=== PATIENT | female | born 1995 | race Caucasian/White ===

== ENCOUNTER → 2018-09-23 | Outpatient (CLI) | payer OTHER ==
[~2018-09-23] MED LIST: ONDA4SOL PO; PROZ40CA PO
--- NOTE | 2018-09-23 16:13 | REP ---
THORACIC SPINE, THREE VIEWS: HISTORY: Back pain. There is no acute fracture or subluxation. The intervertebral discs are normal in height. IMPRESSION: There is no acute fracture or subluxation. Electronically Signed by Robbie Barba MD 09/23/2018 04:18 P
--- NOTE | 2018-09-23 16:17 | REP ---
LUMBAR SPINE, FIVE VIEWS: HISTORY: Back pain. There is no acute fracture or subluxation. The intervertebral discs are normal in height. The facet joints are normal in appearance. IMPRESSION: There is no acute fracture or subluxation. Electronically Signed by Robbie Barba MD 09/23/2018 04:18 P
== END ==
LOC: M WUC 10:57
PROVIDERS: ATTEND Family Medicine
DX: M54.9 Dorsalgia, unspecified (principal)

== ENCOUNTER → 2018-10-16 | Outpatient (REF) | payer OTHER | LOC: M LAB REF 13:26 | PROVIDERS: ATTEND Specialist | DX: Z12.4 Encounter for screening for malignant neoplasm of cervix (principal) ==

== ENCOUNTER → 2020-05-29 | Outpatient (REF) | payer MEDICAID, OTHER | LOC: M LAB REF 09:00 | PROVIDERS: ATTEND Specialist | DX: Z00.00 Encounter for general adult medical examination without abnormal findings (principal) ==

== ENCOUNTER → 2020-07-27 | Outpatient (REF) | payer OTHER ==
[2020-07-27 14:02] LABS: HEMATOCRIT 40.9 % (36.0-47.0); HEMOGLOBIN 13.5 g/dl (12.0-15.5); MEAN CORPUSCULAR HEMOGLOBIN 29.3 pg (27.0-33.0); MEAN CORPUSCULAR VOLUME 88.7 fl (80.0-96.0); PLATELET COUNT, AUTOMATED 284 10^3/uL (150-450); RED BLOOD COUNT 4.61 10^6/uL (4.00-5.40); WHITE BLOOD COUNT 6.4 10^3/uL (4.0-10.0)
[2020-07-27 15:19] LABS: HEPATITIS C VIRUS ABY INDEX 0.1 INDEX (<0.8); HIV 1&2 SCREEN CENTAUR NEGATIVE (NEGATIVE)
== END ==
LOC: M PLALAB 09:41
PROVIDERS: ATTEND Specialist
DX: Z34.81 Encounter for supervision of other normal pregnancy, first trimester (principal)

== ENCOUNTER → 2020-08-25 | Outpatient (CLI) | payer OTHER | LOC: M PLALAB 09:21 | PROVIDERS: ATTEND Advanced Practice Midwife | DX: Z34.82 Encounter for supervision of other normal pregnancy, second trimester (principal); Z36.89 Encounter for other specified antenatal screening ==

== ENCOUNTER → 2020-10-02 | Outpatient (CLI) | payer OTHER ==
--- NOTE | 2020-10-02 10:51 | REP ---
INDICATION: ANATOMY COMPARISON: None. TECHNIQUE: Transabdominal obstetrical ultrasound with color Doppler evaluation. FINDINGS: Examination demonstrates a single live intrauterine in cephalic presentation. motion is identified by technologist. Placenta is noted anterior and grade 1 without evidence for placenta previa or abruption. Amniotic fluid volume is normal. Cervix measures 3.4 cm in length and appears closed. Placental tip 2.8 cm from the closed internal os.. Gestational age by LMP 18 weeks 4 days with MARY ELLEN 03/01/2021. Gestational age by current measurements 18 weeks 4 days with MARY ELLEN 03/01/2021. FHR equals 143 beats per minute. BPD: 4.3 cm 18 weeks 6 days HC: 15.5 cm 18 weeks 3 days AC: 13.1 cm 18 weeks 4 days FL: 2.7 cm 18 weeks 1 day HL: 2.8 cm 19 weeks 0 days HC/AC: 1.19 Estimated weight 238 grams (34thpercentile). Anatomical assessment demonstrates normal structures including cranium, choroid plexus, cavum, cerebellum/posterior fossa, facial features, lungs, four-chamber heart/ventricular outflow tracts, diaphragm, stomach, cord insertion/three-vessel cord, kidneys/bladder, spine, and extremities. IMPRESSION: Single live intrauterine in cephalic presentation demonstrating appropriate interval growth. Anatomical assessment is complete and normal. No gross abnormalities are identified. <Electronically signed by Medardo Ashraf > 10/02/20 [id number]
== END ==
LOC: M WHC 09:38
PROVIDERS: ATTEND Advanced Practice Midwife
DX: Z34.82 Encounter for supervision of other normal pregnancy, second trimester (principal); Z3A.17 17 weeks gestation of pregnancy

== ENCOUNTER → 2021-01-09 | Outpatient (REF) | payer OTHER ==
[2021-01-09 15:50] LABS: HEMATOCRIT 31.5 % (36.0-47.0); HEMOGLOBIN 9.9 g/dl (12.0-15.5); MEAN CORPUSCULAR HEMOGLOBIN 27.5 pg (27.0-33.0); MEAN CORPUSCULAR HGB CONC 31.4 g/dl (32.0-36.5); MEAN CORPUSCULAR VOLUME 87.5 fl (80.0-96.0); PLATELET COUNT, AUTOMATED 370 10^3/uL (150-450)
== END ==
LOC: M PLALAB 11:10
PROVIDERS: ATTEND Specialist
DX: Z36.89 Encounter for other specified antenatal screening (principal); Z34.82 Encounter for supervision of other normal pregnancy, second trimester

== ENCOUNTER → 2021-01-16 | Outpatient (CLI) | payer OTHER ==
--- NOTE | 2021-01-17 06:27 | REP ---
INDICATION: GROWTH COMPARISON: 10/02/2020 TECHNIQUE: Transabdominal obstetrical ultrasound with color Doppler evaluation. FINDINGS: Examination demonstrates a single live intrauterine in breech presentation. motion is identified by technologist. Placenta is noted anterior and grade 3 without evidence for placenta previa or abruption. Amniotic fluid volume is normal. Cervix measures 3.9 cm in length and appears closed.. Gestational age by LMP and 1st U/S 33 weeks 5 days with MARY ELLEN 03/01/2021. Gestational age by current measurements 32 weeks 5 days with MARY ELLEN is 03/08/2021. FHR equals 158 beats per minute. BPD: 7.7 cm at 30 weeks 5 days HC: 30.3 cm at 33 weeks 5 days AC: 31.2 cm at 35 weeks 1 day FL: 6.2 cm at 32 weeks 1 day HL: 5.5 cm at 31 weeks 6 days HC/AC: 0.97 Estimated weight 2268 grams (44thpercentile). SARA: 13.8 cm IMPRESSION: Single live intrauterine in breech presentation demonstrating appropriate estimated weight and growth. <Electronically signed by Medardo Ashraf > 01/17/21 [id number]
== END ==
LOC: M WHC 09:59
PROVIDERS: ATTEND Advanced Practice Midwife
DX: Z36.89 Encounter for other specified antenatal screening (principal)

== ENCOUNTER → 2021-02-06 | Outpatient (REF) | payer OTHER | LOC: M SFHCWAGY 12:45 | PROVIDERS: ATTEND Specialist | DX: Z34.83 Encounter for supervision of other normal pregnancy, third trimester (principal) ==

== ENCOUNTER 2021-02-22 14:43 | Outpatient (CLI) | payer OTHER ==
[~2021-02-22] VITALS: Ht 182.9 cm; Wt 96.0 kg
[2021-02-22] MEDS ORDERED: PRENTAB9 PO (15:08)
[2021-02-22] MEDS ORDERED: DULOXETINE PO (15:08)
[2021-02-22] MEDS ORDERED: OMEP40CA97 PO (15:08)
[2021-02-22 15:13] VITALS: BP 121/68
--- NOTE | 2021-02-22 16:05 | IPNPDOC ---
Text Note Date of Service The patient was seen on 02/22/21. NOTE Triage Note Isa is a 26yo with SIUP at 39w0d presenting for leakage of fluid. She states no recent intercourse. The discharge is clear but much more watery than her usual discharge. Not currently leaking any further. Good movement. No vaginal bleeding. No regular ctx (though she had a run of ctx earlier in the morning). Vitals wnl, afebrile Gen: WDWN, comfortable sitting in bed Abdomen: soft, gravid, NTTP SSE: NEFG, NO pooling, NEGATIVE valsalva. Nitrite negative. Ferning negative. SCE: /-1 TAUS: SIUP with cephalic presentation, anterior placenta, +FCA, +FM, MVP 3.7cm and pockets of fluid visualized in all quadrants NST: reactive with +accels, -decels, mod hu [place]: occasional ctx Assessment: Isa is a 26yo with SIUP at 39w0d with NO evidence of ROM or active labor. Negative pool/valsalva/nitrazine/fern. MVP 3.7cm. Reactive NST with occasional ctx. SCE /-1. Plan: -safe for discharge home, provided reassurance -keep next routine OB appt on 02/28 -good hydration -return precautions discussed MD MAAME Batista Fishbone, I+O Ellie ISABEL I+O Vital Signs Date Time Temp Pulse Resp B/P (MAP) Pulse Ox O2 Delivery O2 Flow Rate FiO2 02/22/21 15:13 98.2 80 18 121/68 (85) Alyson Maldonado MD February 22, 2021 16:05
== END 2021-02-22 15:48 | disposition home or self-care (01) ==
LOC: M LDO 14:43
PROVIDERS: ATTEND Obstetrics & Gynecology
DX: O47.1 False labor at or after 37 completed weeks of gestation (principal); Z3A.39 39 weeks gestation of pregnancy; Z88.8 Allergy status to other drugs, medicaments and biological substances

== ENCOUNTER 2021-02-22 21:03 | Inpatient (IN) | payer OTHER ==
[~2021-02-22] VITALS: Ht 182.9 cm; Wt 95.9 kg
[~2021-02-22 21:03] MED LIST changes: +DULOXETINE PO; +OMEP40CA97 PO; +PRENTAB9 PO
[2021-02-22 21:18] VITALS: BP 126/72
[2021-02-22] MEDS ORDERED: LACTATED RINGER'S 1000 ML IV STA (22:01)
[2021-02-22] MEDS ORDERED: OXYTOCIN DRIP 30 UNITS in IV 1 EA IV PRN (22:05)
[2021-02-22 22:30] LABS: HEMATOCRIT 31.1 % (36.0-47.0); HEMOGLOBIN 9.9 g/dl (12.0-15.5); MEAN CORPUSCULAR HEMOGLOBIN 25.8 pg (27.0-33.0); MEAN CORPUSCULAR HGB CONC 31.8 g/dl (32.0-36.5); PLATELET COUNT, AUTOMATED 365 10^3/uL (150-450); RED BLOOD COUNT 3.84 10^6/uL (4.00-5.40); WHITE BLOOD COUNT 11.2 10^3/uL (4.0-10.0)
[2021-02-22 22:58] VITALS: BP 134/62
[2021-02-22] MEDS ORDERED: FENTANYL 2MCG/ML ROPIVACAINE 0.2% IN 0.9% NACL 100ML IVBAG As Ordered ONE (23:10)
--- NOTE | 2021-02-22 23:11 | HPEPDOC ---
Obstetrical History & Physical General Date of Admission February 22, 2021 at 22:51 History of Present Illness Isa is a 26yo with SIUP at 39w0d by 9wk u/s presenting for regular, painful ctx. She was seen earlier today in the afternoon for possible SROM but had negative workup (negative pooling/valsalva/nitrazine/ferning and adequate SARA). At that time SCE was 4/75/-2 and she had very occasional ctx that were not painful. She called me a few hours later after going home to say that her contractions were picking up and becoming uncomfortable- I recommended waiting until she had a solid hour of painful regular ctx 3-5min apart, and she called back about 1.5hr later and stated ctx were extremely strong. I advised her to come in. She has had good movement. No further LOF from what she originally presented with earlier in the day. No vaginal bleeding. Chief Complaint: Contractions, term Information Provided By: Patient Care Care: Good Care Dating Final EDC: March 01, 2021 Final EDC by: 1st trimester (US) Antepartum Course Diagnos(e)s Anxiety (cymbalta 60mg qd), GERD (omeprazole) Past Medical History Past Obstetrical History : Past Obstetrical History: Multigravida (03/26/2015 39wk 7lb9oz F) [employer] History: History of STD (chlamydia and molluscum contagiosum) Past Medical History Medical History seasonal allergies, tension headaches Surgical History: Diagnostic laparoscopy (cyst removed from fallopian tube (R), incidental appendectomy 2010) Family History Significant Family History: Other (MGM breast cancer, PGM ovarian cancer) Social History Marital Status: Other (life partner) Family situation: Spouse/partner home Psychosocial History: Anxiety * Smoker: non-smoker Alcohol: Denies Drugs: denies Allergies Coded Allergies: metoclopramide (Verified Allergy, Unknown, 02/22/21) Medications Scheduled Omeprazole (Omeprazole) 40 Mg Capsule.dr, 40 MG PO DAILY No.137/Iron/Folic Acd ( Vitamin Tablet) 1 Each Tablet, 1 TAB PO DAILY [Duloxetime] , 60 MG PO DAILY Physical Examination Physical Examination GENERAL: Alert and oriented times three. ABDOMEN: Gravid and non-tender to touch. FETUS: Is vertex (VTX) by sterile vaginal examination (SVE) EXTREMITIES: No edema BLE Vital Signs/I&O Vital Signs Date Time Temp Pulse Resp B/P (MAP) Pulse Ox O2 Delivery O2 Flow Rate FiO2 02/22/21 21:18 98.4 100 18 126/72 (90) Laboratory Data 24H [facility]S Laboratory Tests 2 02/22/21 22:21: Nucleated Red Blood Cells % (auto) 0.0 CBC/BMP Laboratory Tests 02/22/21 22:21 Pertinent Laboratoy Data Blood Type: O+ RBC Antibody Screen: Negative HIV: Negative Hepatitis B: Negative Hepatitis C: Negative Rapid Plasma Reagin: Nonreactive Rubella: Immune Chlamydia/Gonorrhea: Negative Group B Streptococcus: Negative Glucose Tolerance Test: 114 Anatomy Ultrasound Ultrasound Date: Oct 02, 2020 Placenta Location: Anterior Normal Anatomy: Yes Placenta Previa: No Steroid Therapy Steroid Therapy: No Vaginal Examination Dilation: 5 cm Effacement: 90% Station: -1, 0 Cervical Consistency: Soft Cervical Position: Middle Presentation: Cephalic presentation Assessment Heart Rate (FHR): 130 Variability: Moderate Accelerations: Positive Decelerations: None Tocometer Contractions: Yes Frequency: regular, every 2-5 min. Duration: greater than 60 seconds Strength: palpated as strong Assessment/Plan Assessment Isa is a 26yo with SIUP at 39w0d by 9wk u/s presenting in active labor with SCE change from 4/75/-1 to 5/90/-1 in the setting of painful, regular ctx. Vitals wnl, reassuring status. Cephalic by SCE. GBS negative. Plan Admit and orient. Outpatient Dietitian and consent. Diet: clear liquids Group B Streptococcus (GBS) negative Labs and intravenous (IV) per unit protocol. Lactated Ringers (LR): Bolus 800 mL, then at 125 mL/hr. Anticipate normal spontaneous delivery () Candidate for epidural as desired Alyson Maldonado MD February 22, 2021 23:10
[2021-02-22] MEDS ORDERED: OXYTOCIN 30 UNITS IN 0.9% NaCl 500ML IV BAG (J2590) As Ordered ONE (23:13)
[2021-02-22] MEDS ORDERED: MEASLES,MUMPS,RUBELLA VACCINE INJ (MMR-II) (90707) SC SCH (23:30)
[2021-02-22] MEDS ORDERED: IBUPROFEN 600MG TAB PO PRN (23:30)
[2021-02-22] MEDS ORDERED: DOCUSATE SODIUM 100MG CAPSULE PO PRN (23:30)
[2021-02-22] MEDS ORDERED: RHOGAM 300 MCG (1500 IU) INJ (J2790) IM SCH (23:30)
[2021-02-22] MEDS ORDERED: ACETAMINOPHEN TAB 650MG DOSE (2X325MG) PO PRN (23:30)
[2021-02-22] MEDS ORDERED: DIBUCAINE 1% OINTMENT 30GM TOP PRN (23:30)
--- NOTE | 2021-02-22 23:33 | DNPDOC ---
[facility] Delivery Note Delivery Note DATE OF DELIVERY: 02/22/2021 PREDELIVERY DIAGNOSIS: 39w0d SIUP in active labor POST DELIVERY DIAGNOSIS: Delivered. PROCEDURE: Spontaneous vaginal delivery FRONT COUNTER CLERK: Dr. Alyson Maldonado MD ANESTHESIA: none ESTIMATED BLOOD LOSS: 200 mL. FINDINGS: 6 pound 12 ounce (3060g) female infant, Score 8/9 DELIVERY SUMMARY: Isa is a 26yo [id number] s/p uncomplicated at 39w0d after presenting in active labor, delivering at 2312 on 02/22/21. She presented at 4/75/-1 and very rapidly progressed to C/C/0, at which point she began pushing. With excellent maternal effort, 's head delivered OA, restituted JOSÉ. Left anterior shoulder delivered followed by posterior shoulder and corpus. Moderate meconium only noted at that point (SROM occurred 1 minute before delivery, but was initially thought to be clear). Infant was vigorous with lusty cry, apgars 8/9, placed on maternal abdomen. After approximately 2 minutes, cord was clamped x2 and cut by FOB. Cord blood obtained for MBT O pos. With firm traction on the cord and uterine massage, placenta delivered spontaneously and intact with centrally inserted 3 vessel cord. Bimanual massage was performed with firming of the uterus. IV pitocin bolused per protocol. Inspection of vagina and perineum revealed bilateral labial abrasions that were hemostatic with no need for repair. Fundus again massaged and noted U-2cm. All counts correct x2. Mom and baby were doing well when I left the room. MD Erica Batista Katrina D MD February 22, 2021 23:33
[2021-02-22 23:50] VITALS: BP 133/63
[2021-02-23 00:05] VITALS: BP 136/69
[2021-02-23 01:04] VITALS: BP 125/64
[2021-02-23] MEDS: IBUPROFEN 800 MG TAB PO PRN ×2 (01:20→16:25)
[2021-02-23 01:45] VITALS: BP 131/79
[2021-02-23] MEDS: LR 1,000 ML IV SCH ×2 (02:22→06:05)
[2021-02-23 05:35] VITALS: BP 114/54
--- NOTE | 2021-02-23 08:54 | IPNPDOC ---
Text Note Date of Service The patient was seen on 02/23/21. NOTE PP#1 Feels well. Adequate pain management. . Voiding VSS, afebrile, normotensive Breasts soft, nipples intact Fundus firm, NT, down 1 FB Lochia rubra scant without odor PP #1 Routine care. Anticipate D/C in am VS,Fishbone, I+O VS, Fishbone, I+O Laboratory Tests 02/22/21 22:21 Vital Signs Date Time Temp Pulse Resp B/P (MAP) Pulse Ox O2 Delivery O2 Flow Rate FiO2 02/23/21 05:35 98.0 68 16 114/54 (74) 100 Room Air I&O- Last 24 Hours up to 6 AM 02/23/21 06:00 Intake Total 1740 ml Output Total 400 ml Balance 1340 ml Elizabeth Joseph CNM February 23, 2021 08:54
[2021-02-23] MEDS: PRENATAL VITAMINS CHEWABLE TABLET PO SCH (09:45)
[2021-02-23] MEDS: DULoxetine 30 MG CAP (CYMBALTA) PO SCH (09:45)
[2021-02-23] MEDS: ACETAMINOPHEN 500 MG TAB PO PRN (09:45)
[2021-02-23 18:00] VITALS: BP 123/70
[2021-02-24] MEDS: IBUPROFEN 800 MG TAB PO PRN (00:49)
[2021-02-24 06:10] VITALS: BP 108/53
[2021-02-24] MEDS: DULoxetine 30 MG CAP (CYMBALTA) PO SCH (08:35)
[2021-02-24] MEDS: PRENATAL VITAMINS CHEWABLE TABLET PO SCH (08:36)
[2021-02-24] MEDS: ACETAMINOPHEN 500 MG TAB PO PRN (08:36)
== END 2021-02-24 12:40 | disposition home or self-care (01) | DRG 560 ==
LOC: M LDO 21:03 → M LDI 22:51 → M OBS 02-23 01:39
PROVIDERS: ADMIT Obstetrics & Gynecology; ATTEND Obstetrics & Gynecology
PROC: 10E0XZZ Delivery of Products of Conception, External Approach (ICD-10-PCS; principal; 2021-02-22)
DX: O99.344 Other mental disorders complicating childbirth (principal); F41.9 Anxiety disorder, unspecified; Z37.0 Single live birth; O62.3 Precipitate labor; Z3A.39 39 weeks gestation of pregnancy

== ENCOUNTER 2021-11-08 20:36 | Emergency (ER) | payer OTHER ==
[~2021-11-08] VITALS: Ht 182.9 cm; Wt 88.2 kg
[~2021-11-08 20:36] MED LIST changes: +OMEP40CA4 PO; -OMEP40CA97 PO
[2021-11-08 20:42] VITALS: BP 113/75
[2021-11-08] MEDS ORDERED: FLUO20CA22 (20:48)
[2021-11-08] MEDS ORDERED: ESTA0.25 (20:48)
[2021-11-08] MEDS ORDERED: AMPH1CAP5 (20:48)
[2021-11-09] MEDS ORDERED: PROM12.56 PO (10:00)
== END 2021-11-08 21:11 | disposition left against medical advice (07) ==
LOC: M ED 20:36
DX: Z53.21 Procedure and treatment not carried out due to patient leaving prior to being seen by health care provider (principal)

== ENCOUNTER 2021-11-09 04:01 | Emergency (ER) | payer OTHER ==
[~2021-11-09] VITALS: Ht 177.8 cm; Wt 88.2 kg
[~2021-11-09 04:01] MED LIST changes: +AMPH1CAP5; +ESTA0.25; +FLUO20CA22
[2021-11-09] MEDS ORDERED: NS 1,000 ML IV ONE (06:10)
[2021-11-09] MEDS ORDERED: ONDANSETRON 4MG/2ML VIAL IV ONE (06:10)
[2021-11-09 07:01] VITALS: BP 116/62
[2021-11-09] MEDS ORDERED: PROMETHAZINE INJ 25 MG/ML VIAL (J2550) IV ONE (07:10)
[2021-11-09 07:11] LABS: BASO % 0.2 % (0.0-1.0); HEMATOCRIT 39.7 % (36.0-47.0); LYMPH # 1.1 10^3/uL (1.5-5.0); LYMPH % 9.8 % (24.0-44.0); MEAN CORPUSCULAR HGB CONC 32.7 g/dl (32.0-36.5); MEAN CORPUSCULAR VOLUME 82.4 fl (80.0-96.0); MONO # 0.3 10^3/uL (0.0-0.8); MONO % 2.7 % (2.0-8.0); NEUTROPHILS # 9.4 10^3/uL (1.5-8.5); NEUTROPHILS % 86.8 % (36.0-66.0); PLATELET COUNT, AUTOMATED 256 10^3/uL (150-450); RED BLOOD COUNT 4.82 10^6/uL (4.00-5.40); WHITE BLOOD COUNT 10.8 10^3/uL (4.0-10.0)
[2021-11-09 07:36] LABS: ALBUMIN 3.7 GM/DL (3.2-5.2); ALT/SGPT 20 U/L (12-78); BILIRUBIN,DIRECT 0.1 MG/DL (0.0-0.2); BILIRUBIN,TOTAL 0.3 MG/DL (0.2-1.0); BLOOD UREA NITROGEN 14 MG/DL (7-18); CALCIUM LEVEL 9.1 MG/DL (8.5-10.1); CARBON DIOXIDE LEVEL 23 MEQ/L (21-32); CHLORIDE LEVEL 108 MEQ/L (98-107); CREATININE FOR GFR 0.97 MG/DL (0.55-1.30); GLOMERULAR FILTRATION RATE > 60.0 (>60); GLUCOSE, FASTING 155 MG/DL (70-100); LIPASE 107 U/L (73-393); POTASSIUM SERUM 3.9 MEQ/L (3.5-5.1); SODIUM LEVEL 139 MEQ/L (136-145); TOTAL PROTEIN 7.8 GM/DL (6.4-8.2)
[2021-11-09 07:37] LABS: HCG, SERUM QUALITATIVE NEGATIVE (NEGATIVE)
[2021-11-09] MEDS ORDERED: NS 760 ML IV ONE (08:10)
[2021-11-09] MEDS ORDERED: PROM12.56 PO (10:00)
== END 2021-11-09 10:45 | disposition home or self-care (01) ==
LOC: M ED 04:01
DX: U07.1 COVID-19 (principal); E86.0 Dehydration; R11.2 Nausea with vomiting, unspecified; K21.9 Gastro-esophageal reflux disease without esophagitis; F32.9 Major depressive disorder, single episode, unspecified; F90.9 Attention-deficit hyperactivity disorder, unspecified type; Z79.899 Other long term (current) drug therapy; Z79.3 Long term (current) use of hormonal contraceptives
CPT/HCPCS: 80048; 80076; 83690; 84703; 85025; 93005; 93041; 96361; 96374; 96375; 99284; J2405; U0003

== ENCOUNTER → 2024-07-19 | Outpatient (REF) | payer OTHER ==
[~2024-07-19] MED LIST changes: +FLUO-365; -FLUO20CA22; +PROM12.56 PO
[2024-07-19 15:43] LABS: GC DNA AMPLIFICATION NEGATIVE (NEGATIVE)
== END ==
LOC: M SFHCWAGY 12:19
PROVIDERS: ATTEND Specialist
DX: Z34.81 Encounter for supervision of other normal pregnancy, first trimester (principal)

== ENCOUNTER → 2024-08-18 | Outpatient (CLI) | payer OTHER ==
[2024-08-18 14:14] LABS: HEMOGLOBIN 12.5 g/dl (12.0-15.5); MEAN CORPUSCULAR HEMOGLOBIN 30.8 pg (27.0-33.0); MEAN CORPUSCULAR HGB CONC 33.8 g/dl (32.0-36.5); MEAN CORPUSCULAR VOLUME 91.1 fl (80.0-96.0); PLATELET COUNT, AUTOMATED 294 10^3/uL (150-450); RED BLOOD COUNT 4.06 10^6/uL (4.00-5.40)
[2024-08-18 14:58] LABS: HIV 1&2 SCREEN NEGATIVE (NEGATIVE)
[2024-08-18 15:06] LABS: HEPATITIS C VIRUS ABY INDEX 0.02 INDEX (<0.8)
== END ==
LOC: M PLALAB 11:13
PROVIDERS: ATTEND Specialist
DX: Z34.81 Encounter for supervision of other normal pregnancy, first trimester (principal)

== ENCOUNTER → 2024-08-18 | Outpatient (REF) | payer OTHER | LOC: M PLALAB 11:06 | PROVIDERS: ATTEND Obstetrics & Gynecology | DX: Z36.89 Encounter for other specified antenatal screening (principal); Z3A.13 13 weeks gestation of pregnancy ==

== ENCOUNTER → 2024-10-14 | Outpatient (CLI) | payer OTHER | LOC: M WHC 15:08 | PROVIDERS: ATTEND Obstetrics & Gynecology | DX: Z34.82 Encounter for supervision of other normal pregnancy, second trimester (principal) ==

== ENCOUNTER → 2024-11-18 | Outpatient (CLI) | payer OTHER | LOC: M WHC 13:06 | PROVIDERS: ATTEND Obstetrics & Gynecology | DX: Z34.80 Encounter for supervision of other normal pregnancy, unspecified trimester (principal) ==

== ENCOUNTER → 2024-12-08 | Outpatient (CLI) | payer OTHER ==
[2024-12-08 15:08] LABS: HEMATOCRIT 33.3 % (36.0-47.0); HEMOGLOBIN 10.8 g/dl (12.0-15.5); MEAN CORPUSCULAR HEMOGLOBIN 30.1 pg (27.0-33.0); MEAN CORPUSCULAR HGB CONC 32.4 g/dl (32.0-36.5); MEAN CORPUSCULAR VOLUME 92.8 fl (80.0-96.0); PLATELET COUNT, AUTOMATED 342 10^3/uL (150-450); RED BLOOD COUNT 3.59 10^6/uL (4.00-5.40); WHITE BLOOD COUNT 9.6 10^3/uL (4.0-10.0)
[2024-12-08 15:32] LABS: GLUCOSE CHALLENGE TEST 1 HOUR 74 MG/DL (LESS THAN 140)
[2024-12-08 16:07] LABS: HIV 1&2 SCREEN NEGATIVE (NEGATIVE)
[2024-12-08 18:16] LABS: HEPATITIS C VIRUS ABY INDEX 0.03 INDEX (<0.8)
== END ==
LOC: M PLALAB 12:08
PROVIDERS: ATTEND Obstetrics & Gynecology
DX: Z34.80 Encounter for supervision of other normal pregnancy, unspecified trimester (principal)

== ENCOUNTER → 2024-12-14 | Outpatient (REF) | payer OTHER ==
[2024-12-14 21:19] LABS: GC DNA AMPLIFICATION NEGATIVE (NEGATIVE)
== END ==
LOC: M PLALAB 16:00
PROVIDERS: ATTEND Nurse Practitioner Family
DX: Z34.83 Encounter for supervision of other normal pregnancy, third trimester (principal)

== ENCOUNTER → 2025-01-18 | Outpatient (REF) | payer OTHER | LOC: M PLALAB 14:32 | PROVIDERS: ATTEND Nurse Practitioner Family | DX: Z36.89 Encounter for other specified antenatal screening (principal); Z3A.35 35 weeks gestation of pregnancy ==

== ENCOUNTER → 2025-01-25 | Outpatient (CLI) | payer OTHER | LOC: M WHC 12:33 | PROVIDERS: ATTEND Nurse Practitioner Family | DX: O28.8 Other abnormal findings on antenatal screening of mother (principal) ==

== ENCOUNTER 2025-02-15 05:01 | Inpatient (IN) | payer OTHER ==
[~2025-02-15] VITALS: Ht 182.9 cm; Wt 107.4 kg
[2025-02-15] VITALS (10 sets, daily range): BP systolic 107–127; BP diastolic 52–68; TEMP 97.8; O2SAT 96–99
[~2025-02-15 05:01] MED LIST changes: +IRON65TA2 PO; +MAGN400C2 PO; +MULTTAB20 PO
[2025-02-15] MEDS: LACTATED RINGER'S 1000 ML IV STA (05:12)
[2025-02-15] MEDS ORDERED: LR 1,000 ML IV SCH (05:15)
[2025-02-15 05:54] LABS: HEMATOCRIT 35.4 % (36.0-47.0); HEMOGLOBIN 11.9 g/dl (12.0-15.5); MEAN CORPUSCULAR HEMOGLOBIN 29.5 pg (27.0-33.0); MEAN CORPUSCULAR HGB CONC 33.6 g/dl (32.0-36.5); MEAN CORPUSCULAR VOLUME 87.6 fl (80.0-96.0); PLATELET COUNT, AUTOMATED 296 10^3/uL (150-450); RED BLOOD COUNT 4.04 10^6/uL (4.00-5.40); WHITE BLOOD COUNT 8.2 10^3/uL (4.0-10.0)
[2025-02-15 06:51] LABS: HIV 1&2 SCREEN NEGATIVE (NEGATIVE)
[2025-02-15 06:59] LABS: HEPATITIS C VIRUS ABY INDEX 0.03 INDEX (<0.8)
[2025-02-15] MEDS: AZITHROMYCIN INJ 500 MG, VIAL MATE ADAPTER 1 EACH in NS 250 ML IV ONE (07:39)
[2025-02-15] MEDS: BICITRA 30ML SOLN UDC PO ONE (07:39)
[2025-02-15] MEDS: ceFAZolin SODIUM 2 GM in DEXTROSE 5% (D5W) ADV/MINI-BAG 50 ML IV ONE (07:39)
[2025-02-15] MEDS ORDERED: ONDANSETRON 4MG 2ML VIAL As Ordered ONE (08:07)
[2025-02-15] MEDS ORDERED: OXYTOCIN 30UNITS IN 0.9% NaCl 500ML IV BAG As Ordered ONE (08:07)
[2025-02-15] MEDS ORDERED: MORPHINE PRES-FREE INJ 10 MG/10 ML VIAL As Ordered ONE (08:07)
[2025-02-15] MEDS ORDERED: ACETAMINOPHEN 1000MG/100ML IV BAG As Ordered ONE (08:07)
[2025-02-15] MEDS ORDERED: KETOROLAC 30 MG/ML 1ML VIAL As Ordered ONE (08:07)
[2025-02-15] MEDS ORDERED: PHENYLephrine 500MCG 5ML (100MCG/ML) SYRINGE As Ordered ONE (08:17)
[2025-02-15] MEDS ORDERED: ePHEDrine SULFATE 25 MG/5 ML(5MG/ML) SYRINGE As Ordered ONE (08:18)
[2025-02-15 08:50] LABS: CORD GAS ABE V -1.5; CORD GAS HCO3 V 23.1 MMOL/L; CORD GAS O2 SAT V 80.1 %; CORD GAS PCO2 V 38.7 mmHg; CORD GAS PH V 7.394 UNITS; CORD GAS PO2 V 36.5 mmHg; CORD GAS SBC V 22.8 MMOL/L; CORD GAS TCO2 V 24.3 MMOL/L
[2025-02-15] MEDS ORDERED: ANUSOL HC CREAM 30GM TOP PRN (09:15)
[2025-02-15] MEDS ORDERED: oxyCODONE 5MG TAB PO PRN ×2 (09:15→09:50)
[2025-02-15] MEDS ORDERED: SIMETHICONE 80MG CHEW TAB PO PRN (09:15)
[2025-02-15] MEDS ORDERED: fentaNYL 100 MCG/2 ML INJECTION IV PRN (09:50)
[2025-02-15] MEDS ORDERED: diphenhydrAMINE 50MG/ML VIAL IV PRN (09:50)
[2025-02-15] MEDS ORDERED: NALOXONE INJ 0.4MG/1ML VIAL IV PRN ×2 (09:50)
[2025-02-15] MEDS ORDERED: MEPERIDINE 25 MG/ML 1ML VIAL IV PRN (09:50)
[2025-02-15] MEDS ORDERED: HYDROMORPHONE HCL 0.5 MG/ 0.5 ML SYRINGE IV PRN (09:50)
[2025-02-15] MEDS ORDERED: **NOTE PATIENT COMMENT** MISC XX SCH (09:50)
[2025-02-15] MEDS: SLF 3 ML SYR IV SCH (09:50)
[2025-02-15] MEDS ORDERED: ONDANSETRON 4MG 2ML VIAL IV PRN (09:50)
[2025-02-15] MEDS: OXYTOCIN DRIP 30 UNITS in IV 1 EA IV ONE (10:03)
[2025-02-15] MEDS: ACETAMINOPHEN 500 MG TAB PO PRN (14:49)
[2025-02-15] MEDS ORDERED: HOME MED LIST COMPLETE! XX SCH (16:20)
[2025-02-15] MEDS: FERROUS SULFATE 325MG TAB PO SCH (17:00)
[2025-02-15] MEDS: IBUPROFEN 800 MG TAB PO SCH (19:00)
[2025-02-15] MEDS: DOCUSATE SODIUM 100MG CAPSULE PO SCH (22:10)
[2025-02-16] VITALS (7 sets, daily range): BP systolic 101–132; BP diastolic 54–88; O2SAT 95–98
[2025-02-16 06:33] LABS: HEMATOCRIT 28.9 % (36.0-47.0); MEAN CORPUSCULAR HEMOGLOBIN 29.7 pg (27.0-33.0); MEAN CORPUSCULAR HGB CONC 33.6 g/dl (32.0-36.5); MEAN CORPUSCULAR VOLUME 88.4 fl (80.0-96.0); PLATELET COUNT, AUTOMATED 247 10^3/uL (150-450); RED BLOOD COUNT 3.27 10^6/uL (4.00-5.40); WHITE BLOOD COUNT 9.5 10^3/uL (4.0-10.0)
[2025-02-16 06:40] LABS: HEMOGLOBIN 9.7 g/dl (12.0-15.5)
[2025-02-16] MEDS: PRENATAL VITAMINS CHEWABLE TABLET PO SCH (09:31)
[2025-02-16] MEDS: oxyCODONE 5MG TAB PO PRN (15:43)
[2025-02-17 02:00] VITALS: BP 105/56; O2SAT 99
[2025-02-17 06:00] VITALS: BP 112/68; O2SAT 99
[2025-02-17] MEDS ORDERED: MEASLES,MUMPS,RUBELLA VACCINE INJ (MMR-II) SC.IMMUN ONE (09:00)
[2025-02-17] MEDS ORDERED: OXYC1TAB23 PO (10:08)
[2025-02-17] MEDS ORDERED: IBUP80TA PO (10:08)
[2025-02-17] MEDS: BOOSTRIX VACCINE (TETANUS/DIPHTH/ACEL. PERTUSSIS) 0.5ML SYR IM.IMMUN ONE (11:12)
[2025-02-18] MEDS ORDERED: FERR325T19 (18:02)
[2025-02-18] MEDS ORDERED: MAG-400T7 (18:02)
== END 2025-02-17 11:59 | disposition home or self-care (01) | DRG 785 ==
LOC: M LDI 05:01 → M OBS 10:33
PROVIDERS: ADMIT Obstetrics & Gynecology; ATTEND Obstetrics & Gynecology
PROC: 0UT70ZZ Resection of Bilateral Fallopian Tubes, Open Approach (ICD-10-PCS; 2025-02-15)
PROC: 10D00Z1 Extraction of Products of Conception, Low, Open Approach (ICD-10-PCS; principal; 2025-02-15 07:30)
DX: O80 Encounter for full-term uncomplicated delivery (principal); Z37.0 Single live birth; Z3A.39 39 weeks gestation of pregnancy; Z30.2 Encounter for sterilization

== ENCOUNTER 2025-02-18 17:51 | Emergency (ER) | payer OTHER ==
[~2025-02-18] VITALS: Ht 182.9 cm; Wt 104.9 kg
[~2025-02-18 17:51] MED LIST changes: +IBUP80TA PO; +OXYC1TAB23 PO
[2025-02-18] MEDS ORDERED: FERR325T19 (18:02)
[2025-02-18] MEDS ORDERED: MAG-400T7 (18:02)
[2025-02-18] MEDS: ONDANSETRON 4MG 2ML VIAL IV ONE (23:31)
[2025-02-18] MEDS: KETOROLAC 30 MG/ML 1ML VIAL IV ONE (23:32)
[2025-02-18] MEDS: dexAMETHasone 20MG/5ML VIAL IV ONE (23:33)
[2025-02-19 00:35] VITALS: TEMP 98
[2025-02-19] MEDS ORDERED: ONDA-282 PO (00:41)
[2025-02-19] MEDS ORDERED: PRED20TA PO (00:42)
[2025-02-19 01:00] VITALS: BP 116/58
[2025-02-19 01:15] VITALS: O2SAT 85
== END 2025-02-19 01:21 | disposition home or self-care (01) ==
LOC: M ED 17:51
DX: O89.4 Spinal and epidural anesthesia-induced headache during the puerperium (principal); Z88.8 Allergy status to other drugs, medicaments and biological substances; Z79.1 Long term (current) use of non-steroidal anti-inflammatories (NSAID); Z79.52 Long term (current) use of systemic steroids; Z79.899 Other long term (current) drug therapy; Z79.810 Long term (current) use of selective estrogen receptor modulators (SERMs)
CPT/HCPCS: 96374; 96375; 99284; J1100; J1885; J2405

== ENCOUNTER → 2025-07-15 | Outpatient (REF) | payer OTHER, MEDICAID ==
[~2025-07-15] MED LIST changes: +FERR325T19; +MAG-400T7; +ONDA-282 PO; +PRED20TA PO
[2025-07-15 16:54] LABS: BASO # 0.1 10^3/uL (0.0-0.2); BASO % 0.8 % (0.0-1.0); EOS # 0.2 10^3/uL (0.0-0.5); EOS % 2.9 % (0.0-3.0); LYMPH # 2.2 10^3/uL (1.5-5.0); LYMPH % 33.0 % (24.0-44.0); MONO # 0.6 10^3/uL (0.0-0.8); MONO % 8.9 % (2.0-8.0); NEUTROPHILS # 3.6 10^3/uL (1.5-8.5); NEUTROPHILS % 54.2 % (36.0-66.0); PLATELET COUNT, AUTOMATED 361 10^3/uL (150-450)
[2025-07-15 17:28] LABS: IRON (FE) 52 UG/DL (50-170); PERCENT SATURATION 13.5 % (13.2-45.0)
[2025-07-15 17:45] LABS: THYROID PEROXIDASE ANTIBODY > 1300.0 U/ML (<60.0)
== END ==
LOC: M LAB REF 16:13
PROVIDERS: ATTEND Pediatrics
DX: L65.9 Nonscarring hair loss, unspecified (principal); N92.0 Excessive and frequent menstruation with regular cycle